=== PATIENT | male | born 1940 | race Caucasian/White ===

== ENCOUNTER 2024-01-14 10:48 | Emergency (ER) | payer MEDICARE, OTHER ==
[~2024-01-14] VITALS: Ht 157.5 cm; Wt 61.2 kg
[2024-01-14 11:19] LABS: BASOPHILS # (AUTO) 0.1 K/uL (0.0-0.2); BASOPHILS % (AUTO) 0.7 % (0.0-2.0); EOSINOPHILS # (AUTO) 0.4 K/uL (0.0-0.7); EOSINOPHILS % (AUTO) 4.2 % (0.0-6.0); HEMATOCRIT 33 % (39-51); HEMOGLOBIN 10.8 g/dL (13.5-17.5); LYMPHOCYTES # (AUTO) 1.5 K/uL (0.8-4.8); LYMPHOCYTES % (AUTO) 16.3 % (20.0-44.0); MEAN CORPUSCULAR HEMOGLOBIN 29 PG (26.0-33.0); MEAN CORPUSCULAR HGB CONC 33 g/dl (31.0-36.0); MEAN CORPUSCULAR VOLUME 89 fL (80-96); MONOCYTES # (AUTO) 0.6 K/uL (0.1-1.30); MONOCYTES % (AUTO) 6.9 % (2.0-12.0); NEUTROPHILS # (AUTO) 6.7 K/uL (1.8-8.9); NEUTROPHILS % (AUTO) 71.9 % (43.0-81.0); PLATELET COUNT (AUTO) 220 K/uL (150-450); RED BLOOD CELL COUNT(AUTO) 3.69 MIL/uL (4.5-6.0); RED CELL DISTRIBUTION WIDTH 16.9 % (11.5-15.0); WHITE BLOOD COUNT (AUTO) 9.3 K/uL (4.3-11.0)
[2024-01-14 11:28] LABS: CALCIUM, SERUM 9.3 mg/dL (8.5-10.1); CARBON DIOXIDE 30 mmol/L (21-32); CHLORIDE 103 mmol/L (98-107); CREATININE 1.6 mg/dL (0.6-1.3); GLUCOSE 103 mg/dL (74-106); POTASSIUM 4.2 mmol/L (3.5-5.1); SODIUM SERUM 137 mmol/L (136-145); UREA NITROGEN, BLOOD 28 mg/dL (7-18)
[2024-01-14 11:33] LABS: ALANINE AMINOTRANSFERASE 27 U/L (12-78); ALBUMIN 2.8 g/dL (3.4-5.0); ALCOHOL, BLOOD < 3 mg/dL (0-10); ALKALINE PHOSPHATASE 93 U/L (46-116); ASPARTATE AMINOTRANSFERASE 21 U/L (15-37); BILIRUBIN,DIRECT 0.1 mg/dL (0.0-0.2); BILIRUBIN,TOTAL 0.3 mg/dL (0.2-1.0); SALICYLATE 1.4 mg/dL (2.8-20.0); TOTAL PROTEIN, SERUM 7.5 g/dL (6.4-8.2)
[2024-01-14 11:34] LABS: ACETAMINOPHEN <10 ug/ml (10-30)
[2024-01-14] MEDS ORDERED: OLANZAPINE 10 MG VIAL IM ONE (12:20)
[2024-01-14] MEDS: OLANZAPINE 10 MG VIAL IM ONE (12:30)
[2024-01-14] MEDS ORDERED: RIVA3CAP17 PO (12:51)
[2024-01-14] MEDS ORDERED: LIDO700A30 TP (12:51)
[2024-01-14] MEDS ORDERED: IPRA3AMP22 IH (12:51)
[2024-01-14] MEDS ORDERED: QUET100T PO (12:51)
[2024-01-14] MEDS ORDERED: ASPI-1420 PO (12:51)
[2024-01-14] MEDS ORDERED: LORA-258 PO (12:51)
[2024-01-14] MEDS ORDERED: DIVA125C5 PO (12:51)
[2024-01-14] MEDS ORDERED: ROSU40TA23 PO (12:51)
[2024-01-14] MEDS ORDERED: GUAI-1189 PO (12:51)
[2024-01-14] MEDS ORDERED: ACET-637 PO (12:51)
[2024-01-14] MEDS ORDERED: NITR0.4T48 SL (12:51)
[2024-01-14] MEDS ORDERED: AMLO-213 PO (12:51)
[2024-01-14] MEDS ORDERED: SERT50TA12 PO (12:51)
[2024-01-14 18:47] VITALS: BP 116/71; TEMP 97.5; O2SAT 97
== END 2024-01-14 17:52 ==
LOC: ER 10:48
DX: G20.A1 Parkinson's disease without dyskinesia, without mention of fluctuations (principal); F02.811 Dementia in other diseases classified elsewhere, unspecified severity, with agitation; I12.9 Hypertensive chronic kidney disease with stage 1 through stage 4 chronic kidney disease, or unspecified chronic kidney disease; N18.9 Chronic kidney disease, unspecified; E78.5 Hyperlipidemia, unspecified; Z86.73 Personal history of transient ischemic attack (TIA), and cerebral infarction without residual deficits; Z88.8 Allergy status to other drugs, medicaments and biological substances; Z88.5 Allergy status to narcotic agent; Z20.822 Contact with and (suspected) exposure to COVID-19
CPT/HCPCS: 99285; 96372; 85025; 80048; 80076; 36415; 87426; 80143; 80320; J3490; G0480